=== PATIENT | female | born 1970 | race Caucasian/White ===

== ENCOUNTER 2023-05-10 22:16 | Emergency (ER) | payer OTHER ==
[~2023-05-10] VITALS: Ht 170.2 cm; Wt 81.6 kg
[2023-05-10] MEDS ORDERED: KETOROLAC 60 MG VIAL (30MG/ML) IM ONE (23:00)
[2023-05-10] MEDS ORDERED: HYDROMORPHONE 0.5 MG SYG (0.5MG/0.5ML) IM ONE (23:00)
[2023-05-11] MEDS ORDERED: CYCL-309 PO (00:02)
[2023-05-11] MEDS ORDERED: IBUP-1493 PO (00:02)
[2023-05-11 00:08] VITALS: BP 145/60
== END 2023-05-11 00:20 | disposition home or self-care (01) ==
LOC: EDH 22:16
DX: S40.012A Contusion of left shoulder, initial encounter (principal); S80.02XA Contusion of left knee, initial encounter; Z88.8 Allergy status to other drugs, medicaments and biological substances; W18.30XA Fall on same level, unspecified, initial encounter; Y93.89 Activity, other specified; Y92.89 Other specified places as the place of occurrence of the external cause; Y99.8 Other external cause status
CPT/HCPCS: 99284; 71045; 73000; 73562; 73030; 96372 ×2; J1885; J1170; 29105